=== PATIENT | female | born 1980 | race Caucasian/White ===

== ENCOUNTER 2022-10-26 23:25 | Inpatient (IN) | payer BC ==
[2022-10-27 00:20] LABS: BASOPHILS ABSOLUTE AUTO 0.01 K/mm3 (0.01-0.08); BASOPHILS PERCENT AUTO 0.1 % (0.1-1.2); EOSINOPHILS ABSOLUTE AUTO 0.09 K/mm3 (0.04-0.36); EOSINOPHILS PERCENT AUTO 0.8 (0.7-5.8); HEMATOCRIT 35.3 % (34.1-44.9); HEMOGLOBIN 11.8 gm/dl (11.2-15.7); IMMATURE GRAN ABSOLUTE AUTO 0.03 K/mm3 (0.00-0.10); IMMATURE GRAN PERCENT AUTO 0.3 % (<=1.0); LYMPHOCYTES ABSOLUTE AUTO 2.07 K/mm3 (1.18-3.74); LYMPHOCYTES PERCENT AUTO 19.3 % (19.3-51.7); MEAN CORPUSCULAR HEMOGLOBIN 33.3 pg (25.6-32.2); MEAN CORPUSCULAR HGB CONC 33.4 g/dl (32.2-35.5); MEAN CORPUSCULAR VOLUME 99.7 fl (79.4-94.8); MEAN PLATELET VOLUME 13.4 fl (9.4-12.3); MONOCYTES ABSOLUTE AUTO 0.53 K/mm3 (0.24-0.36); MONOCYTES PERCENT AUTO 4.9 % (4.7-12.5); NEUTROPHILS ABSOLUTE AUTO 7.99 K/mm3 (1.56-6.13); NEUTROPHILS PERCENT AUTO 74.6 % (34.0-71.1); PLATELET COUNT,PLT 188 K/mm3 (182-369); RED BLOOD CELL COUNT 3.54 M/mm3 (3.98-5.22); WHITE BLOOD CELL COUNT,WBC 10.72 K/mm3 (3.98-10.04)
[2022-10-27] MEDS ORDERED: Sodium Chloride 0.9% 10 ML Syringe FLUSH PRN (00:22)
[2022-10-27] MEDS ORDERED: Metoclopramide 10 MG/2 ML SDV IVPUSH ONE (00:22)
[2022-10-27] MEDS ORDERED: ceFAZolin 2 GM in Sodium Chloride 0.9% 50 ML IV ONE (00:22)
[2022-10-27] MEDS ORDERED: Citric Acid/Sodium Citrate Solution 30 ML Cup PO ONE (00:22)
[2022-10-27] MEDS ORDERED: Azithromycin 500 MG in Sodium Chloride 0.9% 250 ML IV ONE (00:25)
[2022-10-27] MEDS ORDERED: Lactated Ringers 1,000 ML IV SCH (00:30)
[2022-10-27] MEDS ORDERED: Ondansetron 4 MG/2 ML SDV ONE (00:35)
[2022-10-27] MEDS ORDERED: Lactated Ringers 2,000 ML ONE (00:35)
[2022-10-27] MEDS ORDERED: Oxytocin 10 Units/1 ML SDV ONE (00:35)
[2022-10-27] MEDS ORDERED: ceFAZolin 2 GM Vial ONE (00:35)
[2022-10-27] MEDS ORDERED: Ketorolac 30 MG/ML SDV ONE (00:35)
[2022-10-27] MEDS ORDERED: Morphine PF 10 MG/10 ML SDV ONE (00:38)
[2022-10-27] MEDS ORDERED: Meperidine 50 MG/ML Vial IVPUSH PRN (00:50)
[2022-10-27] MEDS ORDERED: Ondansetron 4 MG/2 ML SDV IVPUSH PRN (00:50)
[2022-10-27] MEDS ORDERED: diphenhydrAMINE 50 MG/ML SDV IVPUSH PRN ×2 (00:50→06:19)
[2022-10-27] MEDS ORDERED: fentaNYL 100 MCG/2 ML SDV IVPUSH PRN (00:50)
[2022-10-27] MEDS ORDERED: ePHEDrine 50 MG/ML SDV ONE (01:11)
[2022-10-27] MEDS ORDERED: Bupivacaine 0.75%/D5W 2 ML Amp ONE (01:11)
[2022-10-27] MEDS ORDERED: Dexamethasone 4 MG/ML SDV ONE (01:16)
[2022-10-27] MEDS ORDERED: Docusate Sodium 100 MG Cap PO PRN (06:19)
[2022-10-27] MEDS ORDERED: ePHEDrine 50 MG/ML SDV IVPUSH PRN (06:19)
[2022-10-27] MEDS ORDERED: Dextrose 5%-Lactated Ringers 1,000 ML IV SCH (06:19)
[2022-10-27] MEDS ORDERED: Acetaminophen/oxyCODONE 325-5 MG Tab PO PRN (06:19)
[2022-10-27] MEDS ORDERED: Naloxone 0.4 MG/ML SDV IVPUSH PRN (06:19)
[2022-10-27] MEDS: Ketorolac 30 MG/ML SDV IVPUSH SCH ×3 (08:01→20:03)
[2022-10-27] MEDS ORDERED: Sodium Chloride 0.9% 10 ML Syringe FLUSH SCH (09:00)
[2022-10-27] MEDS: Acetaminophen/oxyCODONE 325-5 MG Tab PO PRN ×2 (12:03→18:36)
[2022-10-28] MEDS: Ibuprofen 600 MG Tab PO PRN ×2 (02:00→08:44)
[2022-10-28] MEDS: Acetaminophen/oxyCODONE 325-5 MG Tab PO PRN ×2 (02:00→13:01)
[2022-10-28 05:34] LABS: HEMATOCRIT 28.5 % (34.1-44.9); MEAN CORPUSCULAR HEMOGLOBIN 33.1 pg (25.6-32.2); MEAN CORPUSCULAR HGB CONC 32.6 g/dl (32.2-35.5); MEAN CORPUSCULAR VOLUME 101.4 fl (79.4-94.8); MEAN PLATELET VOLUME 13.2 fl (9.4-12.3); PLATELET COUNT,PLT 157 K/mm3 (182-369); RED BLOOD CELL COUNT 2.81 M/mm3 (3.98-5.22); WHITE BLOOD CELL COUNT,WBC 8.59 K/mm3 (3.98-10.04)
[2022-10-28 05:49] LABS: HEMOGLOBIN 9.3 gm/dl (11.2-15.7)
[2022-10-28] MEDS ORDERED: Measles, Mumps & Rubella Vaccine 0.5 ML SDV SUBCUT ONE (10:00)
== END 2022-10-28 14:53 | disposition home or self-care (01) | DRG 540 ==
LOC: JD.OBCHECK 23:25 → JD.OB 10-27 00:02 → JD.OBCHECK 10-27 00:22 → OBSVTOIN 10-27 01:24
PROVIDERS: ADMIT Obstetrics & Gynecology; ATTEND Obstetrics & Gynecology
PROC: 10D00Z1 Extraction of Products of Conception, Low, Open Approach (ICD-10-PCS; principal; 2022-10-27)
PROC: 3E0234Z Introduction of Serum, Toxoid and Vaccine into Muscle, Percutaneous Approach (ICD-10-PCS; 2022-10-27)
DX: O42.02 Full-term premature rupture of membranes, onset of labor within 24 hours of rupture (principal); Z3A.38 38 weeks gestation of pregnancy; Z37.0 Single live birth; Z23 Encounter for immunization; O34.211 Maternal care for low transverse scar from previous cesarean delivery; O99.344 Other mental disorders complicating childbirth; F32.A Depression, unspecified; Z91.048 Other nonmedicinal substance allergy status; Z28.39 Other underimmunization status; Z67.91 Unspecified blood type, Rh negative
CPT/HCPCS: 01961; 36415; 51702; 59025; 85025; 85027; 86592; 86850; 86870; 86900; 86901; 90471; 90707; 94762; 99140; A9270-GY; J0456; J0690; J1100; J1885; J2274; J2405; J2590; J2765; J3490; J7050; J7120